=== PATIENT | male | born 1930 | race Caucasian/White ===

== ENCOUNTER 2016-08-18 21:04 | Inpatient (IN) | payer OTHER ==
[~2016-08-18] VITALS: Ht 177.8 cm; Wt 98.7 kg
[~2016-08-18 21:04] MED LIST: ASPIR 8181 M1 PO; AUGMENTIN875 MG PO; CO Q-10200 MG PO; CRESTOR40 MG PO; FISH OIL OMEGA1 EACH PO; FOLIC ACID PO; HYDROCODON-ACE1 EAC7 PO; KEFLEX500 MG PO; LISINOPRIL2.5 MG PO; OMEPRAZOLE40 M1 PO; PERCOCET 5/31 TABLET PO; PRILOSEC20 MG PO; RED WINE EXTRA1 EAC1 PO; TOPROL XL50 MG PO; VENTOLIN HFA18 GM IH; VITAMIN E100 UNIT PO; VITB PO; ZOFRAN4 MG PO
[2016-08-18 21:52] LABS: EOSINOPHIL (%) 0.5 % (0-5); HEMATOCRIT 45.4 % (38.0-50.0); IMMATURE GRANULOCYTE (%) 0.7 % (0.0-0.7); IMMATURE GRANULOCYTE COUNT 0.1 K/uL; INSTRUMENT ABS NEUTROPHIL CT 7.6 K/uL; LYMPHOCYTE COUNT 0.4 K/uL (1.0-2.8); MCH 29.4 PG (29.0-34.0); MCHC 33.5 G/DL (30.0-36.0); MCV 87.8 FL (86-99); MEAN PLAT.VOLUME 10.7 uM^3 (9.0-12.4); MONOCYTE COUNT 0.1 K/uL (0-0.8); NEUTROPHIL COUNT 7.6 K/uL (1.8-6.4); PLATELET COUNT 111 K/uL (156-360); RBC DIS.WIDTH-CV 13.2 % (11.8-14.6); RBC DIS.WIDTH-SD 42.7 % (39-53); RED BLOOD COUNT 5.17 M/uL (4.00-5.50); WHITE BLOOD COUNT 8.2 K/uL (4.1-10.2)
[2016-08-18 22:00] LABS: CHLORIDE 109 mEq/L (99-109); POTASSIUM 4.1 mEq/L (3.7-5.4); SODIUM 138 mEq/L (136-147)
[2016-08-18 22:02] LABS: GLUCOSE 113 mg/dL (70-99)
[2016-08-18 22:03] LABS: ANION GAP 8 MEQ/L (2-14)
[2016-08-18 22:04] LABS: TOTAL BILIRUBIN 1.3 mg/dL (0.0-1.0)
[2016-08-18 22:06] LABS: ALKALINE PHOSPHATASE 126 IU/L (3-129); GFR ESTIMATE (CALCULATED) > 59 mL/min/
[2016-08-18 22:07] LABS: UREA NITROGEN (BUN) 23 mg/dL (9-23)
[2016-08-18 22:07] LABS: ADD MIUA? YES; BILIRUBIN NEGATIVE; BLOOD NEGATIVE; COLOR YELLOW ((YELLOW)); GLUCOSE (STRIP) NEGATIVE; KETONES NEGATIVE; LEUKOCYTES NEGATIVE; NITRITE NEGATIVE; PROTEIN (STRIP) NEGATIVE; SPECIFIC GRAVITY 1.012 (1.000-1.030); UROBILINOGEN 0.2 MG/DL (0.2-1.0)
[2016-08-18 22:09] LABS: LIPASE 17 U/L (1.0-51.0)
[2016-08-18 22:10] LABS: BACTERIA RARE /HPF; EPITHELIAL CELLS NONE SEEN /HPF; HYALINE CASTS 0-5 /LPF; MUCUS NONE SEEN /LPF; RED BLOOD CELLS 0-5 /HPF (0-5); UCUL ADDED? NO; WHITE BLOOD CELLS 0-5 /HPF (0-5)
[2016-08-18 22:54] LABS: PROTHROMBIN TIME 10.6 (9.2-11.2); PTT 24.3 (25-32)
[2016-08-18 22:58] LABS: CREATINE KINASE 55 IU/L (1-294)
[2016-08-18 23:02] LABS: TROP-I INTERPRETATION NEGATIVE; TROPONIN-I < 0.01 ng/mL (0.0-0.30)
[2016-08-18 23:20] LABS: INFLUENZA A VIRAL ANTIGEN NEGATIVE; INFLUENZA B VIRAL ANTIGEN NEGATIVE
[2016-08-19] MEDS ORDERED: FISH OIL OMEGA1 EAC2 PO (00:15)
[2016-08-19] MEDS ORDERED: FAMOTIDINE10 M1 PO (00:17)
[2016-08-19] MEDS ORDERED: PROTONIX40 MG PO (00:17)
[2016-08-19] MEDS ORDERED: PHAZYME250 MG PO (00:17)
[2016-08-19 00:29] LABS: SALICYLATE < 5.0 MG/DL (15-30)
[2016-08-19 02:51] VITALS: BP 101/51
[2016-08-19 05:52] LABS: EOSINOPHIL (%) 0 % (0-5); HEMATOCRIT 39.7 % (38.0-50.0); IMMATURE GRANULOCYTE (%) 0.7 % (0.0-0.7); IMMATURE GRANULOCYTE COUNT 0.2 K/uL; INSTRUMENT ABS NEUTROPHIL CT 22.4 K/uL; LYMPHOCYTE COUNT 0.7 K/uL (1.0-2.8); MCH 30.8 PG (29.0-34.0); MCHC 34.3 G/DL (30.0-36.0); MCV 89.8 FL (86-99); MEAN PLAT.VOLUME 11.4 uM^3 (9.0-12.4); MONOCYTE (%) 4.7 % (3-12); MONOCYTE COUNT 1.1 K/uL (0-0.8); NEUTROPHIL (%) 91.4 % (45-76); NEUTROPHIL COUNT 22.4 K/uL (1.8-6.4); PLATELET COUNT 125 K/uL (156-360); RBC DIS.WIDTH-CV 13.5 % (11.8-14.6); RBC DIS.WIDTH-SD 44.5 % (39-53); RED BLOOD COUNT 4.42 M/uL (4.00-5.50); WHITE BLOOD COUNT 24.5 K/uL (4.1-10.2)
[2016-08-19 06:10] LABS: D-DIMER ELISA 0.98 mg/L FEU (< 0.57)
[2016-08-19 06:16] LABS: ALKALINE PHOSPHATASE 92 IU/L (3-129); ANION GAP 7 MEQ/L (2-14); CHLORIDE 109 MEQ/L (99-109); GFR ESTIMATE (CALCULATED) > 59 mL/min/; GLUCOSE 110 mg/dL (70-99); POTASSIUM 4.1 MEQ/L (3.7-5.4); SAMPLE HEMOLYSIS CHECK 0; SAMPLE ICTERIC CHECK 0; SAMPLE LIPEMIA CHECK 0; SODIUM 139 MEQ/L (136-147); TOTAL BILIRUBIN 0.9 MG/DL (0.0-1.0); UREA NITROGEN (BUN) 22 mg/dL (9-23)
[2016-08-19 06:27] LABS: TROP-I INTERPRETATION NEGATIVE; TROPONIN-I 0.01 ng/mL (0.0-0.30)
[2016-08-19 07:55] LABS: ERTH.SED.RATE 9 MM/HR (0-20)
[2016-08-19 08:26] VITALS: BP 117/66
[2016-08-19 11:06] LABS: BASOPHIL COUNT 0.1 K/uL (0-0.1); EOSINOPHIL (%) 0.5 % (0-5); EOSINOPHIL COUNT 0.1 K/uL (0-0.3); HEMATOCRIT 38.9 % (38.0-50.0); IMMATURE GRANULOCYTE (%) 0.4 % (0.0-0.7); IMMATURE GRANULOCYTE COUNT 0.1 K/uL; INSTRUMENT ABS NEUTROPHIL CT 15.1 K/uL; LYMPHOCYTE COUNT 1.5 K/uL (1.0-2.8); MCH 29.7 PG (29.0-34.0); MCHC 32.6 G/DL (30.0-36.0); MCV 91.1 FL (86-99); MONOCYTE (%) 7.1 % (3-12); MONOCYTE COUNT 1.3 K/uL (0-0.8); NEUTROPHIL (%) 83.1 % (45-76); NEUTROPHIL COUNT 15.1 K/uL (1.8-6.4); RBC DIS.WIDTH-CV 13.7 % (11.8-14.6); RBC DIS.WIDTH-SD 46.1 % (39-53); RED BLOOD COUNT 4.27 M/uL (4.00-5.50); WHITE BLOOD COUNT 18.2 K/uL (4.1-10.2)
[2016-08-19 11:28] LABS: ANION GAP 7 MEQ/L (2-14); CHLORIDE 110 MEQ/L (99-109); POTASSIUM 4.2 MEQ/L (3.7-5.4); SAMPLE HEMOLYSIS CHECK 0; SAMPLE ICTERIC CHECK 0; SAMPLE LIPEMIA CHECK 0; SODIUM 138 MEQ/L (136-147); TOTAL BILIRUBIN 0.7 MG/DL (0.0-1.0)
[2016-08-19 11:33] LABS: ALKALINE PHOSPHATASE 82 IU/L (3-129); GFR ESTIMATE (CALCULATED) > 59 mL/min/; GLUCOSE 122 mg/dL (70-99); UREA NITROGEN (BUN) 20 mg/dL (9-23)
[2016-08-19 11:37] LABS: TROP-I INTERPRETATION NEGATIVE; TROPONIN-I 0.01 ng/mL (0.0-0.30)
[2016-08-19 11:41] LABS: HEMATOLOGY COMMENT 1 SMEAR COMPATIBLE; MEAN PLAT.VOLUME 11.1 uM^3 (9.0-12.4); PLAT.SUFFICIENCY DECREASED; PLATELET COUNT 108 K/uL (156-360)
[2016-08-19 11:53] LABS: HBSG INDEX 0.22
[2016-08-19 11:54] LABS: ANTI-HEPATITIS A VIRUS (IGM) Nonreactive; HAV INDEX 0.12; HPCA INDEX 0.09
[2016-08-19 11:55] LABS: ANTI-HEPATITIS B CORE (IGM) Nonreactive; HBC IgM INDEX 0.06
[2016-08-19 15:44] VITALS: BP 108/55
[2016-08-19 20:06] VITALS: BP 137/63
[2016-08-20] VITALS (7 sets, daily range): BP systolic 116–152; BP diastolic 57–78
[2016-08-20 05:42] LABS: BASOPHIL COUNT 0.1 K/uL (0-0.1); EOSINOPHIL (%) 2.2 % (0-5); EOSINOPHIL COUNT 0.2 K/uL (0-0.3); HEMATOCRIT 38.1 % (38.0-50.0); IMMATURE GRANULOCYTE (%) 0.4 % (0.0-0.7); INSTRUMENT ABS NEUTROPHIL CT 7.7 K/uL; LYMPHOCYTE COUNT 1.2 K/uL (1.0-2.8); MCH 29.5 PG (29.0-34.0); MCHC 32.5 G/DL (30.0-36.0); MCV 90.7 FL (86-99); MEAN PLAT.VOLUME 11.1 uM^3 (9.0-12.4); MONOCYTE (%) 9.3 % (3-12); MONOCYTE COUNT 0.9 K/uL (0-0.8); NEUTROPHIL (%) 75.8 % (45-76); NEUTROPHIL COUNT 7.7 K/uL (1.8-6.4); PLATELET COUNT 105 K/uL (156-360); RBC DIS.WIDTH-CV 13.8 % (11.8-14.6); RBC DIS.WIDTH-SD 46.3 % (39-53); WHITE BLOOD COUNT 10.2 K/uL (4.1-10.2)
[2016-08-20 06:30] LABS: ALKALINE PHOSPHATASE 69 IU/L (3-129); ANION GAP 5 MEQ/L (2-14); CHLORIDE 111 MEQ/L (99-109); GFR ESTIMATE (CALCULATED) > 59 mL/min/; GLUCOSE 91 mg/dL (70-99); POTASSIUM 4.1 MEQ/L (3.7-5.4); SAMPLE HEMOLYSIS CHECK 0; SAMPLE ICTERIC CHECK 0; SAMPLE LIPEMIA CHECK 0; SODIUM 142 MEQ/L (136-147); TOTAL BILIRUBIN 0.6 MG/DL (0.0-1.0); UREA NITROGEN (BUN) 15 mg/dL (9-23)
[2016-08-21 03:29] VITALS: BP 143/79
[2016-08-21 07:07] LABS: EOSINOPHIL (%) 2.2 % (0-5); EOSINOPHIL COUNT 0.2 K/uL (0-0.3); HEMATOCRIT 40.1 % (38.0-50.0); IMMATURE GRANULOCYTE (%) 0.2 % (0.0-0.7); INSTRUMENT ABS NEUTROPHIL CT 5.9 K/uL; LYMPHOCYTE COUNT 1.1 K/uL (1.0-2.8); MCH 30.2 PG (29.0-34.0); MCHC 33.2 G/DL (30.0-36.0); MCV 90.9 FL (86-99); MEAN PLAT.VOLUME 11.7 uM^3 (9.0-12.4); MONOCYTE (%) 10.1 % (3-12); MONOCYTE COUNT 0.8 K/uL (0-0.8); NEUTROPHIL (%) 73.6 % (45-76); NEUTROPHIL COUNT 5.9 K/uL (1.8-6.4); PLATELET COUNT 113 K/uL (156-360); RBC DIS.WIDTH-CV 13.6 % (11.8-14.6); RBC DIS.WIDTH-SD 45.9 % (39-53); RED BLOOD COUNT 4.41 M/uL (4.00-5.50)
[2016-08-21 07:33] LABS: ALKALINE PHOSPHATASE 69 IU/L (3-129); ANION GAP 7 MEQ/L (2-14); CHLORIDE 111 MEQ/L (99-109); GFR ESTIMATE (CALCULATED) > 59 mL/min/; GLUCOSE 97 mg/dL (70-99); POTASSIUM 3.9 MEQ/L (3.7-5.4); SAMPLE HEMOLYSIS CHECK 0; SAMPLE ICTERIC CHECK 0; SAMPLE LIPEMIA CHECK 0; SODIUM 143 MEQ/L (136-147); TOTAL BILIRUBIN 0.7 MG/DL (0.0-1.0); UREA NITROGEN (BUN) 11 mg/dL (9-23)
[2016-08-21 07:46] VITALS: BP 158/86
[2016-08-21 15:21] VITALS: BP 148/70
[2016-08-21 20:12] VITALS: BP 142/81
[2016-08-21 23:44] VITALS: BP 154/78
[2016-08-22 03:31] VITALS: BP 138/68
[2016-08-22 07:28] VITALS: BP 133/83
[2016-08-22 11:11] VITALS: BP 187/86
[2016-08-22] MEDS ORDERED: ROCEPHIN1000 MG IM (11:51)
== END 2016-08-22 14:39 | disposition home or self-care (01) | DRG 871 ==
LOC: EME 21:04 → EDOF 08-19 01:04 → 5WEST 08-19 02:06 → 5SOUTH 08-19 10:50 → 5WEST 08-19 10:50 → 5SOUTH 08-21 02:40
PROVIDERS: Emergency Medicine; Internal Medicine; Physician Assistant Medical
PROC: 0W9G3ZZ Drainage of Peritoneal Cavity, Percutaneous Approach (ICD-10-PCS; principal; 2016-08-20)
DX: A41.51 Sepsis due to Escherichia coli [E. coli] (principal); K65.1 Peritoneal abscess; K75.0 Abscess of liver; K85.90 Acute pancreatitis without necrosis or infection, unspecified; D69.6 Thrombocytopenia, unspecified; J18.0 Bronchopneumonia, unspecified organism; J44.0 Chronic obstructive pulmonary disease with (acute) lower respiratory infection; I95.9 Hypotension, unspecified; B96.1 Klebsiella pneumoniae [K. pneumoniae] as the cause of diseases classified elsewhere; D64.9 Anemia, unspecified; E78.5 Hyperlipidemia, unspecified; I10 Essential (primary) hypertension; I25.10 Atherosclerotic heart disease of native coronary artery without angina pectoris; I25.2 Old myocardial infarction; J98.11 Atelectasis; K21.9 Gastro-esophageal reflux disease without esophagitis; K59.00 Constipation, unspecified; K76.89 Other specified diseases of liver; N40.0 Benign prostatic hyperplasia without lower urinary tract symptoms; R32 Unspecified urinary incontinence; Z87.891 Personal history of nicotine dependence; Z79.899 Other long term (current) drug therapy; Z79.2 Long term (current) use of antibiotics; Z82.49 Family history of ischemic heart disease and other diseases of the circulatory system; Z90.49 Acquired absence of other specified parts of digestive tract; Z90.79 Acquired absence of other genital organ(s); Z95.1 Presence of aortocoronary bypass graft; K44.9 Diaphragmatic hernia without obstruction or gangrene; R00.0 Tachycardia, unspecified; R74.0 Nonspecific elevation of levels of transaminase and lactic acid dehydrogenase [LDH]; R09.02 Hypoxemia; E78.00 Pure hypercholesterolemia, unspecified; E66.9 Obesity, unspecified; Z68.31 Body mass index [BMI] 31.0-31.9, adult
CPT/HCPCS: 49405; 70450; 71010; 74177; 80053; 80074; 81003; 82550; 83605; 83690; 83880; 84484; 85025; 85025 91; 85379; 85610; 85651; 85730; 87040; 87070; 87075; 87077; 87186; 87205; 87502; 87801; 94799; 99281; 99285; G0480; J0696; J1644; J3010; J7030; J7050; J7120; S0028

== ENCOUNTER 2016-09-23 00:45 | Inpatient (IN) | payer OTHER ==
[~2016-09-23] VITALS: Ht 177.8 cm; Wt 75.3 kg
[~2016-09-23 00:45] MED LIST changes: +FAMOTIDINE10 M1 PO; +FISH OIL OMEGA1 EAC2 PO; +PHAZYME250 MG PO; +PROTONIX40 MG PO; +ROCEPHIN1000 MG IM
[2016-09-23 01:57] LABS: MCH 29.7 PG (29.0-34.0); MCHC 33.6 G/DL (30.0-36.0); MCV 88.4 FL (86-99); PLATELET COUNT 106 K/uL (156-360); RBC DIS.WIDTH-CV 13.2 % (11.8-14.6); RBC DIS.WIDTH-SD 42.9 % (39-53); RED BLOOD COUNT 4.98 M/uL (4.00-5.50); WHITE BLOOD COUNT 10.3 K/uL (4.1-10.2)
[2016-09-23 02:11] LABS: CHLORIDE 108 mEq/L (99-109); POTASSIUM 4.2 mEq/L (3.7-5.4); SODIUM 140 mEq/L (136-147)
[2016-09-23 02:13] LABS: GLUCOSE 116 mg/dL (70-99)
[2016-09-23 02:15] LABS: ANION GAP 9 MEQ/L (2-14); TOTAL BILIRUBIN 3.4 mg/dL (0.0-1.0)
[2016-09-23 02:17] LABS: ALKALINE PHOSPHATASE 146 IU/L (3-129); GFR ESTIMATE (CALCULATED) > 59 mL/min/
[2016-09-23 02:18] LABS: UREA NITROGEN (BUN) 22 mg/dL (9-23)
[2016-09-23 02:20] LABS: LIPASE 13 U/L (1.0-51.0)
[2016-09-23 02:20] LABS: ADD MIUA? NO; BILIRUBIN NEGATIVE; BLOOD NEGATIVE; COLOR AMBER ((YELLOW)); GLUCOSE (STRIP) NEGATIVE; KETONES 5; LEUKOCYTES NEGATIVE; NITRITE NEGATIVE; PROTEIN (STRIP) NEGATIVE; SPECIFIC GRAVITY 1.016 (1.000-1.030); UCUL ADDED? NO
[2016-09-23 05:22] VITALS: BP 142/81
[2016-09-23 11:31] VITALS: BP 138/66
[2016-09-23 13:10] LABS: ALKALINE PHOSPHATASE 107 IU/L (3-129); DIRECT BILIRUBIN 0.5 mg/dL (0.0-0.3); TOTAL BILIRUBIN 1.6 MG/DL (0.0-1.0)
[2016-09-23 15:40] VITALS: BP 160/81
[2016-09-23 19:59] VITALS: BP 131/71
[2016-09-23 22:51] VITALS: BP 154/80
[2016-09-24 06:03] LABS: HEMATOCRIT 39.2 % (38.0-50.0); MCH 29.8 PG (29.0-34.0); MCHC 33.4 G/DL (30.0-36.0); MCV 89.1 FL (86-99); MEAN PLAT.VOLUME 12.4 uM^3 (9.0-12.4); PLATELET COUNT 83 K/uL (156-360); RBC DIS.WIDTH-CV 13.6 % (11.8-14.6); RBC DIS.WIDTH-SD 44.5 % (39-53); WHITE BLOOD COUNT 6.4 K/uL (4.1-10.2)
[2016-09-24 06:14] LABS: INTER. NORMALIZED RATIO 1.2; PROTHROMBIN TIME 13.7 SEC (10.2-12.9)
[2016-09-24 06:17] VITALS: BP 146/72
[2016-09-24 06:17] LABS: PTT 32.5 SEC (25-37)
[2016-09-24 07:17] LABS: ALKALINE PHOSPHATASE 96 IU/L (3-129); ANION GAP 6 MEQ/L (2-14); CHLORIDE 108 MEQ/L (99-109); GFR ESTIMATE (CALCULATED) > 59 mL/min/; GLUCOSE 97 mg/dL (70-99); POTASSIUM 4.2 MEQ/L (3.7-5.4); SAMPLE HEMOLYSIS CHECK 0; SAMPLE ICTERIC CHECK 0; SAMPLE LIPEMIA CHECK 0; SODIUM 138 MEQ/L (136-147); TOTAL BILIRUBIN 1.3 MG/DL (0.0-1.0); UREA NITROGEN (BUN) 17 mg/dL (9-23)
[2016-09-24 07:51] VITALS: BP 158/82
[2016-09-24] MEDS ORDERED: CENTRUM SILVER1 EAC3 PO (13:42)
[2016-09-24] MEDS ORDERED: PROBIOTIC1 EAC1 PO (13:42)
[2016-09-24] MEDS ORDERED: VITAMIN D31000 UNI2 PO (13:42)
[2016-09-24 15:35] VITALS: BP 121/66
[2016-09-24 19:52] VITALS: BP 169/85
[2016-09-24 23:17] VITALS: BP 164/84
[2016-09-25 03:53] VITALS: BP 107/71
[2016-09-25 07:22] VITALS: BP 165/81
[2016-09-25 09:38] LABS: EOSINOPHIL (%) 3.2 % (0-5); EOSINOPHIL COUNT 0.2 K/uL (0-0.3); HEMATOCRIT 39.6 % (38.0-50.0); IMMATURE GRANULOCYTE (%) 0.4 % (0.0-0.7); LYMPHOCYTE COUNT 0.8 K/uL (1.0-2.8); MCH 28.7 PG (29.0-34.0); MCHC 32.3 G/DL (30.0-36.0); MCV 88.8 FL (86-99); MEAN PLAT.VOLUME 11.7 uM^3 (9.0-12.4); MONOCYTE (%) 16.3 % (3-12); MONOCYTE COUNT 0.8 K/uL (0-0.8); NEUTROPHIL (%) 62.6 % (45-76); PLATELET COUNT 97 K/uL (156-360); RBC DIS.WIDTH-CV 13.2 % (11.8-14.6); RBC DIS.WIDTH-SD 43.7 % (39-53); RED BLOOD COUNT 4.46 M/uL (4.00-5.50); WHITE BLOOD COUNT 4.7 K/uL (4.1-10.2)
[2016-09-25 10:04] LABS: ALKALINE PHOSPHATASE 92 IU/L (3-129); ANION GAP 7 MEQ/L (2-14); CHLORIDE 109 MEQ/L (99-109); GFR ESTIMATE (CALCULATED) > 59 mL/min/; GLUCOSE 92 mg/dL (70-99); POTASSIUM 4.5 MEQ/L (3.7-5.4); SAMPLE HEMOLYSIS CHECK 0; SAMPLE ICTERIC CHECK 0; SAMPLE LIPEMIA CHECK 0; SODIUM 141 MEQ/L (136-147); UREA NITROGEN (BUN) 15 mg/dL (9-23)
[2016-09-25 10:06] LABS: TOTAL BILIRUBIN 0.8 MG/DL (0.0-1.0)
[2016-09-25 11:01] VITALS: BP 172/86
[2016-09-25 15:14] VITALS: BP 120/68
[2016-09-25 20:42] VITALS: BP 191/110
[2016-09-25 23:25] VITALS: BP 193/92
[2016-09-26 03:18] VITALS: BP 124/61
[2016-09-26 06:55] LABS: HEMATOCRIT 37.8 % (38.0-50.0); MCH 30.2 PG (29.0-34.0); MCHC 34.1 G/DL (30.0-36.0); MCV 88.5 FL (86-99); MEAN PLAT.VOLUME 11.7 uM^3 (9.0-12.4); PLATELET COUNT 99 K/uL (156-360); RBC DIS.WIDTH-CV 13.2 % (11.8-14.6); RED BLOOD COUNT 4.27 M/uL (4.00-5.50)
[2016-09-26 07:22] LABS: ALKALINE PHOSPHATASE 74 IU/L (3-129); ANION GAP 8 MEQ/L (2-14); CHLORIDE 110 MEQ/L (99-109); GFR ESTIMATE (CALCULATED) > 59 mL/min/; GLUCOSE 110 mg/dL (70-99); SAMPLE HEMOLYSIS CHECK 0; SAMPLE ICTERIC CHECK 0; SAMPLE LIPEMIA CHECK 0; SODIUM 141 MEQ/L (136-147); TOTAL BILIRUBIN 0.5 MG/DL (0.0-1.0); UREA NITROGEN (BUN) 16 mg/dL (9-23)
[2016-09-26 07:26] VITALS: BP 125/70
[2016-09-26 11:20] VITALS: BP 148/70
[2016-09-26 15:12] VITALS: BP 160/78
== END 2016-09-26 17:42 | disposition home or self-care (01) | DRG 444 ==
LOC: EME 00:45 → EDOF 03:53 → 5SOUTH 03:53 → ENRESERV 03:56 → 5SOUTH 05:02
PROVIDERS: Emergency Medicine; Internal Medicine Gastroenterology; Physician Assistant Medical; Specialist
DX: K80.51 Calculus of bile duct without cholangitis or cholecystitis with obstruction (principal); K75.0 Abscess of liver; K65.1 Peritoneal abscess; R78.81 Bacteremia; D69.6 Thrombocytopenia, unspecified; B96.89 Other specified bacterial agents as the cause of diseases classified elsewhere; K76.89 Other specified diseases of liver; E78.5 Hyperlipidemia, unspecified; I10 Essential (primary) hypertension; I25.10 Atherosclerotic heart disease of native coronary artery without angina pectoris; I25.2 Old myocardial infarction; K21.9 Gastro-esophageal reflux disease without esophagitis; N40.0 Benign prostatic hyperplasia without lower urinary tract symptoms; Z79.899 Other long term (current) drug therapy; Z82.49 Family history of ischemic heart disease and other diseases of the circulatory system; Z86.73 Personal history of transient ischemic attack (TIA), and cerebral infarction without residual deficits; Z90.49 Acquired absence of other specified parts of digestive tract; Z95.1 Presence of aortocoronary bypass graft; K44.9 Diaphragmatic hernia without obstruction or gangrene
CPT/HCPCS: 74177; 74181; 74330; 80053; 80076; 81003; 83605; 83690; 85025; 85027; 85610; 85730; 86301 90; 87040; 87077; 87081; 87186; 87801; 88108; 99281; 99285; C1757; C1769; C2625; J0330; J0692; J0696; J1644; J1956; J2270; J2405; J3010; J3370; J7030; J7050

== ENCOUNTER → 2016-09-27 | Outpatient (CLI) | payer OTHER ==
[~2016-09-27] MED LIST changes: +CENTRUM SILVER1 EAC3 PO; +PROBIOTIC1 EAC1 PO; +VITAMIN D31000 UNI2 PO
== END | disposition home or self-care (01) ==
LOC: PICC 12:55
DX: K75.0 Abscess of liver (principal)

== ENCOUNTER 2016-11-09 06:28 | Inpatient (IN) | payer OTHER ==
[~2016-11-09] VITALS: Ht 177.8 cm; Wt 96.0 kg
[2016-11-09 07:17] LABS: INFLUENZA A VIRAL ANTIGEN NEGATIVE; INFLUENZA B VIRAL ANTIGEN NEGATIVE
[2016-11-09 07:17] LABS: ADD MIUA? YES; BILIRUBIN NEGATIVE; BLOOD SMALL; COLOR YELLOW ((YELLOW)); GLUCOSE (STRIP) NEGATIVE; KETONES 5; LEUKOCYTES NEGATIVE; NITRITE NEGATIVE; PROTEIN (STRIP) NEGATIVE; SPECIFIC GRAVITY 1.016 (1.000-1.030); UROBILINOGEN 0.2 MG/DL (0.2-1.0)
[2016-11-09 07:24] LABS: BACTERIA NONE SEEN /HPF; EPITHELIAL CELLS NONE SEEN /HPF; MUCUS TRACE /LPF; RED BLOOD CELLS 0-5 /HPF (0-5); UCUL ADDED? NO; WHITE BLOOD CELLS 0-5 /HPF (0-5)
[2016-11-09 07:40] LABS: CARBON DIOXIDE (BICARBONATE) 23.9 MEQ/L (20-31)
[2016-11-09 07:43] LABS: EOSINOPHIL (%) 0.1 % (0-5); HEMATOCRIT 43.3 % (38.0-50.0); IMMATURE GRANULOCYTE (%) 0.4 % (0.0-0.7); LYMPHOCYTE COUNT 0.3 K/uL (1.0-2.8); MCH 28.8 PG (29.0-34.0); MCV 87.1 FL (86-99); MEAN PLAT.VOLUME 10.6 uM^3 (9.0-12.4); MONOCYTE (%) 5.5 % (3-12); MONOCYTE COUNT 0.5 K/uL (0-0.8); NEUTROPHIL (%) 90.2 % (45-76); RBC DIS.WIDTH-CV 13.6 % (11.8-14.6); RBC DIS.WIDTH-SD 42.9 % (39-53); RED BLOOD COUNT 4.97 M/uL (4.00-5.50); WHITE BLOOD COUNT 8.9 K/uL (4.1-10.2)
[2016-11-09 07:47] LABS: INTER. NORMALIZED RATIO 1.1; PROTHROMBIN TIME 12.3 SEC (10.2-12.9)
[2016-11-09 07:57] LABS: CHLORIDE 110 mEq/L (99-109); POTASSIUM 3.8 mEq/L (3.7-5.4); SODIUM 140 mEq/L (136-147)
[2016-11-09 07:59] LABS: GLUCOSE 124 mg/dL (70-99)
[2016-11-09 08:00] LABS: ANION GAP 11 MEQ/L (2-14)
[2016-11-09 08:03] LABS: ALKALINE PHOSPHATASE 72 IU/L (3-129); GFR ESTIMATE (CALCULATED) > 59 mL/min/
[2016-11-09 08:04] LABS: UREA NITROGEN (BUN) 22 mg/dL (9-23)
[2016-11-09 08:06] LABS: LIPASE 14 U/L (1.0-51.0)
[2016-11-09 08:27] LABS: PLATELET COUNT 92 K/uL (156-360)
[2016-11-09] MEDS ORDERED: FOLIC ACID-VIT1 EAC1 PO (10:16)
[2016-11-09] MEDS ORDERED: CRESTOR40 MG PO (10:17)
[2016-11-09 17:14] VITALS: BP 125/56
[2016-11-09 23:41] VITALS: BP 105/57
[2016-11-10 07:55] VITALS: BP 120/65
[2016-11-10 15:56] VITALS: BP 146/70
[2016-11-10 23:49] VITALS: BP 149/84
[2016-11-11 05:50] LABS: HEMATOCRIT 40.9 % (38.0-50.0); MCH 29.8 PG (29.0-34.0); MCHC 33.5 G/DL (30.0-36.0); MCV 89.1 FL (86-99); MEAN PLAT.VOLUME 11.5 uM^3 (9.0-12.4); PLATELET COUNT 100 K/uL (156-360); RBC DIS.WIDTH-CV 13.9 % (11.8-14.6); RBC DIS.WIDTH-SD 45.1 % (39-53); RED BLOOD COUNT 4.59 M/uL (4.00-5.50); WHITE BLOOD COUNT 6.4 K/uL (4.1-10.2)
[2016-11-11 06:06] LABS: ALKALINE PHOSPHATASE 53 IU/L (3-129); ANION GAP 10 MEQ/L (2-14); CHLORIDE 110 MEQ/L (99-109); GFR ESTIMATE (CALCULATED) > 59 mL/min/; GLUCOSE 111 mg/dL (70-99); POTASSIUM 4.2 MEQ/L (3.7-5.4); SAMPLE HEMOLYSIS CHECK 0; SAMPLE ICTERIC CHECK 0; SAMPLE LIPEMIA CHECK 0; SODIUM 143 MEQ/L (136-147); TOTAL BILIRUBIN 0.6 MG/DL (0.0-1.0); UREA NITROGEN (BUN) 16 mg/dL (9-23)
[2016-11-11 08:57] VITALS: BP 156/75
[2016-11-11] MEDS ORDERED: FLORASTOR250 MG PO (10:38)
[2016-11-11] MEDS ORDERED: CIPRO500 MG PO (10:38)
== END 2016-11-11 12:27 | disposition home or self-care (01) | DRG 919 ==
LOC: EME → EDBD 06:28 → EME 06:28 → 5SOUTH 10:51 → CANRESERV 10:55 → ENRESERV 10:55 → EDOF 11:39 → ENRESERV 14:25 → 5SOUTH 16:42
PROVIDERS: Hospitalist; Physician Assistant
DX: T85.79XA Infection and inflammatory reaction due to other internal prosthetic devices, implants and grafts, initial encounter (principal); A41.9 Sepsis, unspecified organism; N10 Acute pyelonephritis; D69.6 Thrombocytopenia, unspecified; B96.89 Other specified bacterial agents as the cause of diseases classified elsewhere; R09.02 Hypoxemia; I10 Essential (primary) hypertension; E78.5 Hyperlipidemia, unspecified; I25.10 Atherosclerotic heart disease of native coronary artery without angina pectoris; K21.9 Gastro-esophageal reflux disease without esophagitis; K57.90 Diverticulosis of intestine, part unspecified, without perforation or abscess without bleeding; K76.89 Other specified diseases of liver; N28.1 Cyst of kidney, acquired; Z95.1 Presence of aortocoronary bypass graft; Z68.30 Body mass index [BMI] 30.0-30.9, adult; Z90.49 Acquired absence of other specified parts of digestive tract; Z86.73 Personal history of transient ischemic attack (TIA), and cerebral infarction without residual deficits; Z87.891 Personal history of nicotine dependence; I25.2 Old myocardial infarction
CPT/HCPCS: 36415; 71020; 74177; 80053; 81003; 82803; 83605; 83690; 85025; 85027; 85610; 87040; 87077; 87186; 87502; 87801; 90686; 99281; 99285; J0696; J0744; J1650; J1885; J2405; J7030; J7050; J7120